=== PATIENT | male | born 1975 | race African-American/Black ===

== ENCOUNTER 2017-02-11 02:45 | Emergency (ER) | payer SELFPAY ==
[~2017-02-11] VITALS: Ht 190.5 cm; Wt 81.0 kg
[2017-02-11] MEDS ORDERED: BUPIVACAINE HCL/PF 0.5% (5MG/ML) 10ML INFIL ONE (03:15)
[2017-02-11] MEDS ORDERED: ONDANSETRON HCL 4MG/2ML VIAL IV ONE (03:15)
[2017-02-11] MEDS ORDERED: MORPHINE SULFATE 4 MG/ML CPJ (NOT FOR IM USE) IV ONE (03:15)
[2017-02-11 05:30] VITALS: BP 120/91
== END 2017-02-11 05:40 | disposition home or self-care (01) ==
LOC: ER 02:47
DX: S43.004A Unspecified dislocation of right shoulder joint, initial encounter (principal); X58.XXXA Exposure to other specified factors, initial encounter; Y93.89 Activity, other specified; Y92.9 Unspecified place or not applicable; Y99.8 Other external cause status
CPT/HCPCS: 23650; 73030; 96374; 96375; 99284; J2270; J2405; Z7610; J3490; L3670

== ENCOUNTER 2022-03-01 10:27 | Emergency (ER) | payer MEDICAID ==
[~2022-03-01] VITALS: Ht 190.5 cm; Wt 82.0 kg
[2022-03-01] MEDS ORDERED: ACETAMINOPHEN 325MG TABLET PO ONE (10:45)
[2022-03-01] MEDS ORDERED: IBUPROFEN 600MG TABLET PO ONE ×2 (10:45→14:30)
[2022-03-01] MEDS ORDERED: ACETAMINOPHEN 325MG TABLET PO NR (13:21)
[2022-03-01] MEDS ORDERED: IBUPROFEN 600MG TABLET PO NR (13:22)
[2022-03-01] MEDS ORDERED: ACET650T37 MT (14:23)
[2022-03-01] MEDS ORDERED: IBUP-2030 MT (14:23)
[2022-03-01] MEDS ORDERED: HYDROCODONE/ACETAMINOPHEN 10/325MG TABLET PO ONE (14:30)
[2022-03-01 14:41] VITALS: BP 150/72
== END 2022-03-01 14:46 | disposition home or self-care (01) ==
LOC: ER 11:57
DX: S86.011A Strain of right Achilles tendon, initial encounter (principal); F12.10 Cannabis abuse, uncomplicated; X58.XXXA Exposure to other specified factors, initial encounter; Y93.67 Activity, basketball; Y92.89 Other specified places as the place of occurrence of the external cause; Y99.8 Other external cause status
CPT/HCPCS: 29515; 73610; 99284; Z7610

== ENCOUNTER 2022-11-22 12:50 | Emergency (ER) | payer MEDICAID, OTHER ==
[~2022-11-22] VITALS: Ht 185.4 cm; Wt 91.0 kg
[~2022-11-22 12:50] MED LIST: ACET-3163 MT; IBUP-2030 MT
[2022-11-22 12:56] VITALS: BP 126/83
[2022-11-22] MEDS ORDERED: MAGNESIUM/ALUMINUM HYDROXIDE/SIMETHICONE 30ML UDC PO STA (13:05)
[2022-11-22] MEDS ORDERED: ONDANSETRON HCL 4MG/2ML INJ IV STA (13:05)
[2022-11-22] MEDS ORDERED: KETOROLAC 30MG/ML VIAL IV STA (13:05)
[2022-11-22] MEDS ORDERED: FAMOTIDINE 20MG/2ML VIAL IV STA (13:05)
[2022-11-22] MEDS ORDERED: VISCOUS LIDOCAINE 2% 15 ML UDC PO STA (13:05)
[2022-11-22] MEDS ORDERED: SODIUM CHLORIDE 0.9% 1,000 ML IV ONE ×2 (13:15→16:45)
[2022-11-22 15:06] LABS: BASOPHILS % 0.2 % (0.0-2.0); HEMATOCRIT. 41.6 % (42.0-52.0); HEMOGLOBIN. 13.9 g/dL (14.0-18.0); LYMPHOCYTES % 8.1 % (20.0-50.0); MEAN CORPUSCULAR HEMOGLOBIN 30.6 pg (28.0-32.0); MEAN CORPUSCULAR VOLUME 91.4 fL (80.0-94.0); MEAN PLATELET VOLUME 8.6 fl (7.4-10.4); MONOCYTES % 5.5 % (2.0-8.0); NEUTROPHILS % 86.2 % (40.0-76.0); PLATELET 237 x1000/uL (130-400); RED BLOOD CELL COUNT 4.55 mill/uL (4.7-6.1); RED CELL DISTRIBUTION WIDTH 13.8 % (11.6-14.6)
[2022-11-22 15:11] LABS: CHLORIDE 103 mEq/L (98-107)
[2022-11-22] MEDS ORDERED: FAMO-135 MT (16:00)
[2022-11-22] MEDS ORDERED: MAG-55 MT (16:00)
[2022-11-22] MEDS ORDERED: ONDA4TAB50 MT (16:00)
[2022-11-22] MEDS ORDERED: ONDANSETRON HCL 4MG TABLET PO ONE (16:15)
[2022-11-22] MEDS ORDERED: KETOROLAC 15MG/ML VIAL IV NR (16:45)
[2022-11-22] MEDS ORDERED: VISCOUS LIDOCAINE 2% 15 ML UDC PO NR (16:45)
[2022-11-22] MEDS ORDERED: ONDANSETRON HCL 4MG TABLET PO NR (16:45)
[2022-11-22] MEDS ORDERED: FAMOTIDINE 20MG/2ML VIAL IV NR (16:45)
[2022-11-22] MEDS ORDERED: MAGNESIUM/ALUMINUM HYDROXIDE/SIMETHICONE 30ML UDC PO NR (16:45)
== END 2022-11-22 17:58 | disposition home or self-care (01) ==
LOC: ER 12:50
DX: R10.33 Periumbilical pain (principal); K56.1 Intussusception; F12.10 Cannabis abuse, uncomplicated
CPT/HCPCS: 36415; 74176; 80053; 83690; 85025; 96374; 96375; 99285; J1885; J3490; J7030; Q0162; Z7610

== ENCOUNTER 2025-06-27 00:54 | Emergency (ER) | payer OTHER ==
[~2025-06-27] VITALS: Ht 193 cm; Wt 86.0 kg
[~2025-06-27 00:54] MED LIST changes: +BO1 TP; +FAMO-135 MT; +MAG-55 MT; +NAPR-681 MT; +ONDA4TAB50 MT
[2025-06-27 01:17] VITALS: O2SAT 100
[2025-06-27] MEDS ORDERED: LIDO-53 TP (02:52)
[2025-06-27] MEDS ORDERED: NAPR-1176 MT (02:52)
[2025-06-27] MEDS: KETOROLAC 15MG/ML VIAL IM ONE (02:59)
[2025-06-27] MEDS: ACETAMINOPHEN 325MG TABLET PO ONE (03:07)
[2025-06-27 03:09] VITALS: BP 99/71; PULSE 71; RESP 18; TEMP 36.8; O2SAT 100
== END 2025-06-27 03:10 | disposition home or self-care (01) ==
LOC: ER 00:54
DX: S93.409A Sprain of unspecified ligament of unspecified ankle, initial encounter (principal); J45.909 Unspecified asthma, uncomplicated; Z79.899 Other long term (current) drug therapy; X58.XXXA Exposure to other specified factors, initial encounter; Y93.89 Activity, other specified; Y92.89 Other specified places as the place of occurrence of the external cause; Y99.8 Other external cause status
CPT/HCPCS: 99283; J1885